=== PATIENT | female | born 1995 | race Caucasian/White ===

== ENCOUNTER 2022-12-08 09:15 | Inpatient (IN) | payer OTHER ==
[~2022-12-08] VITALS: Ht 157.5 cm; Wt 78.9 kg
[~2022-12-08 09:15] MED LIST: PRENATABS FA T1 EACH PO
[2022-12-13] MEDS ORDERED: PRENATAL TABLE1 EAC1 PO (10:54)
[2022-12-13 19:24] LABS: ABG PH 7.332 (7.35-7.45); ABG pCO2 40.6 mmHg (35-45)
[2022-12-13 19:25] LABS: ABG PO2 28.7 mmHg (80-100); BASE EXCESS -4.6 mmol/l; SaO2 47.9 %; Tco2 22.3 mmol/l; o2 21 %
[2022-12-14 00:29] LABS: HEMATOCRIT 37.3 % (36.0-45.00); MEAN CELL VOLUME 90.5 fL (80.00-100.00); MEAN CORPUSCULAR HEMOGLOBIN 29.2 pg (27.00-32.0); MEAN CORPUSCULAR HGB CONC 32.3 g/dl (32.0-36.0); PLATELET COUNT 230 K/uL (150-450); RED BLOOD COUNT 4.12 M/uL (4.00-6.00)
== END 2022-12-16 13:43 | disposition home or self-care (01) | DRG 785 ==
LOC: OB/GYN 12-13 09:15 → O/R 12-13 15:08 → OB/GYN 12-13 15:08
PROVIDERS: ADMIT Specialist; ATTEND Specialist
PROC: 0UB70ZZ Excision of Bilateral Fallopian Tubes, Open Approach (ICD-10-PCS; 2022-12-13)
PROC: 4A1HXCZ Monitoring of Products of Conception, Cardiac Rate, External Approach (ICD-10-PCS; 2022-12-13)
PROC: 10D00Z1 Extraction of Products of Conception, Low, Open Approach (ICD-10-PCS; principal; 2022-12-13 21:00)
DX: O34.211 Maternal care for low transverse scar from previous cesarean delivery (principal); Z30.2 Encounter for sterilization; Z3A.39 39 weeks gestation of pregnancy; Z37.0 Single live birth; Z20.822 Contact with and (suspected) exposure to COVID-19